=== PATIENT | female | born 2005 | race Caucasian/White ===

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

== ENCOUNTER 2024-05-01 20:56 | Emergency (ER) | payer OTHER ==
[~2024-05-01] VITALS: Ht 165.1 cm; Wt 63.5 kg
[2024-05-01] MEDS ORDERED: IBUP-1955 PO (21:48)
[2024-05-01] MEDS ORDERED: ACETAMINOPHEN 500 MG TABLET ONE (22:03)
[2024-05-01] MEDS: ACETAMINOPHEN 500 MG TABLET PO ONE (22:03)
[2024-05-01 22:05] VITALS: BP 104/72; TEMP 97.9; O2SAT 95
== END 2024-05-01 22:05 | disposition home or self-care (01) ==
LOC: ER 20:56
DX: S13.4XXA Sprain of ligaments of cervical spine, initial encounter (principal); V89.2XXA Person injured in unspecified motor-vehicle accident, traffic, initial encounter; Y93.9 Activity, unspecified; Y92.410 Unspecified street and highway as the place of occurrence of the external cause; Y99.9 Unspecified external cause status
CPT/HCPCS: A4606; A4663; A9150